=== PATIENT | male | born 1990 | race Caucasian/White ===

== ENCOUNTER 2019-02-26 18:23 | Emergency (ER) | payer BC ==
[2019-02-26] MEDS ORDERED: DIPH,PERTUS(ACELL)TETVAC-LF 0.5 ML VIAL IM ONE (18:41)
[2019-02-26] MEDS ORDERED: SODIUM CHLORIDE 0.9% 1,000 ML IV STA (18:41)
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
[2019-02-26 19:02] LABS: Basophils # (A) 0.1 k/uL (0-0.2); Basophils % (A) 0 %; Eosinophils # (A) 0.1 k/uL (0-0.7); Eosinophils % (A) 1 %; HCT 48.7 % (39.0-53.0); Lymphocytes # (A) 2.3 k/uL (1.0-4.8); Lymphocytes % (A) 20 %; MCHC 34.8 g/dL (31.0-37.0); MCV 91.9 fL (80.0-100.0); Mean Platelet Volume 7.6; Monocytes # (A) 0.4 k/uL (0-1.0); Monocytes % (A) 3 %; Neutrophils # (A) 8.4 k/uL (1.3-7.7); Neutrophils % (A) 73 %; Platelet Count 274 k/uL (150-450); RDW 13.5 % (11.5-15.5); WBC 11.5 k/uL (3.8-10.6)
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
[2019-02-26 19:06] LABS: ALT 24 U/L (21-72); AST 41 U/L (17-59); African American GFR (CKD) >90 (>60 ml/min/1.73 sqM); Alkaline Phosphatase 117 U/L (38-126); Amylase 67 U/L (30-110); Anion Gap 13 mmol/L; Blood Urea Nitrogen 9 mg/dL (9-20); Calcium 9.8 mg/dL (8.4-10.2); Carbon Dioxide 23 mmol/L (22-30); Chloride 107 mmol/L (98-107); Glucose 139 mg/dL (74-99); Non-African American GFR(CKD) >90 (>60 ml/min/1.73 sqM); Sodium 143 mmol/L (137-145); Total Bilirubin 0.3 mg/dL (0.2-1.3); Total Protein 8.1 g/dL (6.3-8.2)
[2019-02-26 19:08] LABS: Alcohol 145 mg/dL
[2019-02-26 19:10] LABS: INR 0.9 (<1.2); Partial Thromboplastin Time 23.5 sec (22.0-30.0); Prothrombin Time 9.7 sec (9.0-12.0)
[2019-02-26 19:17] LABS: Creatine Kinase 122 U/L (55-170)
[2019-02-26 19:29] LABS: Creatine Kinase MB 0.7 ng/mL (0.0-2.4); Troponin I <0.012 ng/mL (0.000-0.034)
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
[2019-02-26 21:42] LABS: Appearance,Urine Clear (Clear); Bilirubin,Urine Negative (Negative); Blood,Urine Negative (Negative); Color,Urine Yellow; Glucose,Urine (UA) Negative (Negative); Ketones,Urine Negative (Negative); Leukocyte Esterase,Urine Negative (Negative); Nitrite,Urine Negative (Negative); PH, Urine 7.5 (5.0-8.0); Protein,Urine Trace (Negative); Specific Gravity,Urine 1.037 (1.001-1.035); Urobilinogen,Urine <2.0 mg/dL (<2.0)
[2019-02-26 21:49] LABS: Amphetamine Screen,Urine Not Detected (NotDetected); Barbiturate Screen,Urine Not Detected (NotDetected); Benzodiazepines Screen,Urine Not Detected (NotDetected); Cocaine Screen,Urine Not Detected (NotDetected); Methadone Screen, Urine Not Detected (NotDetected); Opiate Screen,Urine Not Detected (NotDetected); Oxycodone Screen, Urine Not Detected (NotDetected); Phencyclidine Screen,Urine Not Detected (NotDetected); Tricyclic Antidepressant,Urine Not Detected (NotDetected); Urn Cannabinoid Scrn Not Detected (NotDetected)
[2019-02-26 23:00] VITALS: BP 123/85; PULSE 111; RESP 18; TEMP 98
== END 2019-02-26 22:00 | disposition home or self-care (01) ==
LOC: EC 18:23
DX: S81.011A Laceration without foreign body, right knee, initial encounter (principal); S00.11XA Contusion of right eyelid and periocular area, initial encounter; S30.810A Abrasion of lower back and pelvis, initial encounter; S80.212A Abrasion, left knee, initial encounter; S50.311A Abrasion of right elbow, initial encounter; D72.829 Elevated white blood cell count, unspecified; F17.200 Nicotine dependence, unspecified, uncomplicated; Z53.29 Procedure and treatment not carried out because of patient's decision for other reasons; Z79.899 Other long term (current) drug therapy; Z91.013 Allergy to seafood; Z91.018 Allergy to other foods; Z23 Encounter for immunization; V28.4XXA Motorcycle driver injured in noncollision transport accident in traffic accident, initial encounter; Y92.89 Other specified places as the place of occurrence of the external cause
CPT/HCPCS: 99284; 96360; 96361; 90471; 36415; 86900; 86901; 80053; 82150; 82550; 82553; 83605; 83690; 84484; 85025; 85610; 85730; 86850; 81003; 80306; 80320; 72170; 71045; 72125; 70486; 70450; 71260; 74177; 90715; L0120; Q9967; 93005

== ENCOUNTER 2019-07-02 02:33 | Emergency (ER) | payer BC ==
[2019-07-02 02:49] VITALS: BP 120/76; PULSE 84; RESP 20; TEMP 98
[2019-07-02] MEDS ORDERED: KETOROLAC 30 MG/ML 1 ML VIAL IM STA (03:21)
--- NOTE | 2019-07-02 03:29 | ED ---
General Adult HPI - General Chief complaint: Dental/Oral Stated complaint: dental pain Time Seen by Provider: 07/02/19 03:09 Source: patient, RN notes reviewed, old records reviewed Mode of arrival: ambulatory Limitations: no limitations - History of Present Illness Initial comments: 28-year-old male presents for evaluation of dental pain. Patient has pain in his left upper and lower molars. He states he has impacted wisdom teeth and his had dental issues for several years. He has reported fractured teeth as well as multiple anxieties lost over the past 2 years. Denies facial swelling. Denies any fever. No chronic medical conditions. He has pain both upper and lower teeth. He states he has not been able to follow up with a dentist recently but states he was told that he's given and need multiple extractions and dentures. - Related Data Home Medications Medication Instructions Recorded Confirmed Gabapentin(Unknown Dose) 1 tab PO ONCE 02/26/19 02/26/19 Previous Rx's Medication Instructions Recorded Ibuprofen [Motrin] 600 mg PO Q8HR PRN #24 tab 07/02/19 Penicillin V Potassium [Pen Vee K] 500 mg PO QID 7 Days #28 tablet 07/02/19 Allergies Allergy/AdvReac Type Severity Reaction Status Date / Time shellfish derived [Shrimp] Allergy Rash/Hives Verified 07/02/19 02:48 in mouth sweet potato Allergy Rash/Hives Verified 07/02/19 02:48 Review of Systems ROS Statement: Those systems with pertinent positive or pertinent negative responses have been documented in the HPI. ROS Other: All systems not noted in ROS Statement are negative. Past Medical History Past Medical History: No Reported History History of Any Multi-Drug Resistant Organisms: None Reported Past Surgical History: No Surgical Hx Reported Past Psychological History: No Psychological Hx Reported Smoking Status: Current every day smoker Past Alcohol Use History: Occasional Past Drug Use History: None Reported General Exam Limitations: no limitations General appearance: alert, in no apparent distress Head exam: Present: atraumatic, normocephalic Eye exam: Present: normal appearance, PERRL, EOMI ENT exam: Present: other (very poor dentition, multiple fractured teeth, missing fillings, tenderness to percussion throughout the upper and lower wisdom teeth and molars on the left side. No appreciable abscess, no facial cellulitis.) Respiratory exam: Present: normal lung sounds bilaterally. Absent: respiratory distress, wheezes Cardiovascular Exam: Present: regular rate, normal rhythm Course Vital Signs 07/02/19 02:47 Temperature 98 F Pulse Rate 84 Respiratory 20 Rate Blood Pressure 120/76 O2 Sat by Pulse 99 Oximetry Medical Decision Making - Medical Decision Making 28-year-old male with poor dentition, multiple dental caries, fractured teeth, and missing fillings throughout. Pain predominantly on the left hand upper lower molars and wisdom teeth. He will be prescribed prophylactic antibiotics as well as Motrin for pain. He will make an appointment with dentistry. He is given dental follow-up. Disposition Clinical Impression: Fracture of tooth, Dental caries, Impacted molar, Toothache Disposition: HOME SELF-CARE Condition: Good Instructions (If sedation given, give patient instructions): Toothache (ED) Additional Instructions: please follow up with your dentist. Prescriptions: Ibuprofen [Motrin] 600 mg PO Q8HR PRN #24 tab PRN Reason: Pain Penicillin V Potassium [Pen Vee K] 500 mg PO QID 7 Days #28 tablet Is patient prescribed a controlled substance at d/c from ED?: No Referrals: None,Stated [Primary Care Provider] - 1-2 days Time of Disposition: 03:26
== END 2019-07-02 03:43 | disposition home or self-care (01) ==
LOC: EC 02:33
DX: K01.1 Impacted teeth (principal); S02.5XXA Fracture of tooth (traumatic), initial encounter for closed fracture; K02.9 Dental caries, unspecified; F41.9 Anxiety disorder, unspecified; F17.200 Nicotine dependence, unspecified, uncomplicated; Z91.013 Allergy to seafood; Z91.018 Allergy to other foods; Z79.899 Other long term (current) drug therapy; X58.XXXA Exposure to other specified factors, initial encounter
CPT/HCPCS: 96372; 99283

== ENCOUNTER 2020-11-23 03:05 | Emergency (ER) | payer BC, OTHER ==
[2020-11-23 03:11] VITALS: BP 134/82; PULSE 113; RESP 18; TEMP 97.9
== END 2020-11-23 04:38 ==
LOC: EC 03:05
DX: Z02.89 Encounter for other administrative examinations (principal)
CPT/HCPCS: 99499

== ENCOUNTER 2021-12-13 15:03 | Inpatient (IN) | payer BC, MEDICAID, OTHER ==
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
[2021-12-13 17:50] LABS: Basophils # (A) 0.1 k/uL (0-0.2); Basophils % (A) 1 %; Eosinophils % (A) 0 %; HCT 50.6 % (39.0-53.0); HGB 16.3 gm/dL (13.0-17.5); Lymphocytes % (A) 8 %; MCH 31.7 pg (25.0-35.0); MCHC 32.2 g/dL (31.0-37.0); MCV 98.6 fL (80.0-100.0); Mean Platelet Volume 7.4; Monocytes # (A) 0.5 k/uL (0-1.0); Monocytes % (A) 4 %; Neutrophils # (A) 11.9 k/uL (1.3-7.7); Neutrophils % (A) 87 %; Platelet Count 280 k/uL (150-450); RBC 5.13 m/uL (4.30-5.90); RDW 12.2 % (11.5-15.5); WBC 13.7 k/uL (3.8-10.6)
[2021-12-13 18:00] LABS: ALT 32 U/L (4-49); AST 46 U/L (17-59); African American GFR (CKD) >90 (>60 ml/min/1.73 sqM); Albumin 5.3 g/dL (3.5-5.0); Alkaline Phosphatase 154 U/L (38-126); Anion Gap 16 mmol/L; Blood Urea Nitrogen 15 mg/dL (9-20); Calcium 9.6 mg/dL (8.4-10.2); Carbon Dioxide 19 mmol/L (22-30); Chloride 102 mmol/L (98-107); Glucose 98 mg/dL (74-99); Non-African American GFR(CKD) >90 (>60 ml/min/1.73 sqM); Potassium 4.5 mmol/L (3.5-5.1); Sodium 137 mmol/L (137-145); Total Bilirubin 0.7 mg/dL (0.2-1.3); Total Protein 8.4 g/dL (6.3-8.2)
[2021-12-13] MEDS ORDERED: MAGNESIUM HYDROXIDE 2,400 MG/10 ML CUP PO PRN (23:14)
[2021-12-13] MEDS ORDERED: MAG HYDROX/AL HYDROX/SIMETH 30 ML CUP PO PRN (23:14)
[2021-12-13] MEDS ORDERED: LORazepam 1 MG TAB PO PRN (23:14)
[2021-12-13] MEDS ORDERED: HALOPERIDOL LACTATE 5 MG/ML 1 ML VIAL IM PRN (23:14)
[2021-12-13] MEDS ORDERED: ACETAMINOPHEN TAB 325 MG TAB PO PRN (23:14)
[2021-12-13] MEDS ORDERED: LORazepam 2 MG/ML INJ IM PRN (23:18)
[2021-12-13] MEDS ORDERED: QUEtiapine 100 MG TAB PO PRN (23:19)
[2021-12-13] MEDS ORDERED: haloperidoL 5 MG TAB PO PRN (23:19)
[2021-12-14] MEDS: NICOTINE 14MG/24HR PATCH TRANSDERM SCH ×3 (00:31→15:18)
[2021-12-14] MEDS ORDERED: CALCIUM CARBONATE 500 MG CHEWABLE PO PRN (01:17)
--- NOTE | 2021-12-14 01:23 | P.MDCNMH ---
History of Present Illness H&P Date: 12/14/21 Chief Complaint: Anxiety 31-year-old male with history of depression and peptic ulcer disease Patient comes in for evaluation due to depressed mood and excessive anxiety juni ent feels very tense he denies any suicidal ideation but he is struggling with stuttering and feeling very anxious. A lot of things been going wrong in his life and he felt that he couldn't take it anymore started drinking again for couple days and now he is presenting to the ED requesting help and seeking to talk to somebody he is not currently on any medications he hasn't seen any doctor in many years. He also reports some epigastric abdominal pain which normally comes and goes he reports history of peptic ulcer disease he currently doesn't take any medications he denies any radiation of the pain denies any associated nausea vomiting or diarrhea denies any GI bleeding Review of Systems Pertinent positives as noted in HPI. All other systems were reviewed and are negative Past Medical History Past Medical History: No Reported History History of Any Multi-Drug Resistant Organisms: None Reported Past Surgical History: No Surgical Hx Reported Past Anesthesia/Blood Transfusion Reactions: No Reported Reaction Past Psychological History: Anxiety Smoking Status: Current every day smoker Past Alcohol Use History: Occasional Past Drug Use History: None Reported Medications and Allergies Home Medications Medication Instructions Recorded Confirmed Type No Known Home Medications 12/13/21 12/13/21 History Allergies Allergy/AdvReac Type Severity Reaction Status Date / Time shellfish derived [Shrimp] Allergy Rash/Hives Verified 12/13/21 20:29 in mouth sweet potato Allergy Rash/Hives Verified 12/13/21 20:29 Physical Exam Vitals: Vital Signs Temp Pulse Resp BP BP Pulse Ox 12/14/21 00:33 98.0 F 20 143/79 12/13/21 15:24 98.7 F 128 H 18 134/85 98 Intake and Output 12/13/21 12/13/21 12/14/21 14:59 22:59 06:59 Other: Weight 48.081 kg 48.563 kg Constitutional: vital signs stable, Not in acute distress, pleasant, conversant Lungs: Clear to auscultation bilaterally, clear to percussion, normal respiratory effort no use of accessory muscles Cardiovascular: Regular rate and rhythm, no murmurs, no gallops, no rubs, no peripheral edema Gastrointestinal: Soft, no tenderness to palpation, no palpable hepatosple nomegally, bowel sounds positive, no abdominal wall hernias Extremities: No digital cyanosis or clubbing, peripheral pulses palpable and equal over bilateral radial arteries and dorsalis pedis artery, no calf muscle tenderness Cranial Nerve Examination - Cranial Nerves Cranial Nerve II- Optic: Intact Cranial Nerve III- Oculomotor: Intact Cranial Nerve IV- Trochlear: Intact Cranial Nerve V- Trigeminal: Intact Cranial Nerve - Abducens: Intact Cranial Nerve VII- Facial: Intact Cranial Nerve VIII- Auditory: Intact Cranial Nerve IX- Glossopharyngeal: Intact Cranial Nerve X- Vagus: Intact Cranial Nerve XI- Accessory: Intact Cranial Nerve XII- Hypoglossal: Intact Results CBC & Chem 7: 12/13/21 16:45 12/13/21 16:45 Labs: Abnormal Lab Results - Last 24 Hours (Table) 12/13/21 12/13/21 Range/Units 16:45 16:45 WBC 13.7 H (3.8-10.6) k/uL Neutrophils # 11.9 H (1.3-7.7) k/uL Carbon Dioxide 19 L (22-30) mmol/L Alkaline Phosphatase 154 H (38-126) U/L Total Protein 8.4 H (6.3-8.2) g/dL Albumin 5.3 H (3.5-5.0) g/dL Assessment and Plan Assessment: Anxiety and depression Management per psych Epigastric discomfort possible gastritis Protonix 40 mg twice a day Tums when necessary Labs reviewed Thank you for allowing us to participate in the care of this patient. We will follow peripherally. Do not hesitate to contact us with questions. Someone can be reached from the [facility] hospitalist group at all hours of the day at [phone].
[2021-12-14] MEDS: PANTOPRAZOLE 40 MG TABLET PO SCH ×3 (02:09→17:47)
[2021-12-14] MEDS ORDERED: chlordiazePOXIDE 25 MG CAP PO SCH (09:00)
[2021-12-14 09:35] LABS: Chol/HDL Ratio 2.11 Ratio; LDL Cholesterol,Calculated 104.4 mg/dL (0.0-131.0)
[2021-12-14] MEDS ORDERED: PROPRANOLOL 20 MG TAB PO STA (09:59)
[2021-12-14 10:10] VITALS: BMI 18.3
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
[2021-12-14] MEDS: PROPRANOLOL 20 MG TAB PO SCH ×2 (15:18→20:58)
[2021-12-14] MEDS: chlordiazePOXIDE 25 MG CAP PO SCH ×2 (15:18→23:06)
[2021-12-14] MEDS: QUEtiapine 100 MG TAB PO SCH (20:58)
[2021-12-15] MEDS: PANTOPRAZOLE 40 MG TABLET PO SCH ×2 (08:26→16:48)
[2021-12-15] MEDS: NICOTINE 14MG/24HR PATCH TRANSDERM SCH (08:26)
[2021-12-15] MEDS: chlordiazePOXIDE 25 MG CAP PO SCH ×3 (08:27→20:42)
[2021-12-15] MEDS: PROPRANOLOL 20 MG TAB PO SCH (08:27)
--- NOTE | 2021-12-15 13:13 | P.PN ---
Progress Note - Text Progress Note Date: 12/15/21 Interval history: Patient was directable and agreeable to speak with lead technical writer. At this time, patient denies any suicidal or homicidal ideations intent or plan. Denies any auditory or visual hallucinations. Patient denies any side effects from the medications and has been compliant with meds. He reports he starts to tremor and starts to stutter when he gets anxious, and shows me his hands are tremoring. He reports he normally drinks a pint of whiskey of day, for the past year, and his last drink was on 12/13/2021, about 2 days ago. A few years ago he used to drink about a gallon of liquor a day. Mental status exam: General Appearance: Patient appears to be stated age. He is disheveled, unshaven. Behavior: No agitated behavior. Patient is cooperative. Speech: Patient's speech is fluent and nonpressured. Mood/Affect: Mood is improving mildly, affect is anxious and constricted. Suicidality/Homicidality: Patient denies having any suicidal or homicidal ideation intent or plan. Perceptions: Patient denies any auditory or visual hallucinations. Though content/process: There is no evidence of any delusional thought content and thought process is linear and goal-directed. Memory and concentration: Alert and oriented to person, place, time and situation, grossly intact for the purposes of this session Judgment and insight: improving mildly Assessment/Plan: Major depressive disorder, moderate, with anxious features Methamphetamine use disorder Tobacco use disorder Alcohol use disorder Alcohol withdrawal Patient continues to meet criteria for inpatient psychiatric admission for symptom stabilization and safety. Patient will be maintained on current psychotropic medication regimen, except will hold his Inderal since this may mask alcohol withdrawal. Continue Librium 25 mg TID for alcohol withdrawal. Continue CIWA protocol. Will consider starting an antidepressant tomorrow as his alcohol withdrawal resolves. Monitor for medication compliance and for any psychotropic medication side effects. Will continue to monitor ongoing response to treatment. Encouraged participation in milieu.
[2021-12-15] MEDS: QUEtiapine 100 MG TAB PO SCH (20:42)
[2021-12-16] MEDS: NICOTINE 14MG/24HR PATCH TRANSDERM SCH (08:43)
[2021-12-16] MEDS: chlordiazePOXIDE 25 MG CAP PO SCH ×2 (08:43→20:01)
[2021-12-16] MEDS: PANTOPRAZOLE 40 MG TABLET PO SCH ×2 (08:43→16:34)
--- NOTE | 2021-12-16 14:33 | P.PN ---
Progress Note - Text Progress Note Date: 12/16/21 Interval history: Patient was directable and agreeable to speak with radio news writer. At this time, patient denies any suicidal or homicidal ideations intent or plan. Patient denies any auditory or visual hallucinations. Patient denies any side effects from the medications and has been compliant with meds. He appears calmer and less anxious today, and has been sleeping today. He denies tremor, sweating, or shaking. He reports depressed mood, low motivation, tired, anhedonia, low energy, fair appetite. Mental status exam: General Appearance: Patient appears to be stated age. He is disheveled, unshaven. Behavior: No agitated behavior. Patient is cooperative and yawning. Speech: Patient's speech is fluent and nonpressured. Mood/Affect: Mood is "depressed", affect is depressed and constricted. Suicidality/Homicidality: Patient denies having any suicidal or homicidal ideat ion intent or plan. Perceptions: Patient denies any auditory or visual hallucinations. Though content/process: There is no evidence of any delusional thought content and thought process is linear and goal-directed. Memory and concentration: Alert and oriented to person, place, time and situation, grossly intact for the purposes of this session Judgment and insight: improving mildly Assessment/Plan: Major depressive disorder, moderate, with anxious features Methamphetamine use disorder Tobacco use disorder Alcohol use disorder Alcohol withdrawal Patient continues to meet criteria for inpatient psychiatric admission for symptom stabilization and safety. Decrease Librium 25 mg from TID to BID for alcohol withdrawal, with plan to further taper and discontinue. Continue CIWA protocol. Start Lexapro at 5 mg daily for depression and anxiety. Monitor for medication compliance and for any psychotropic medication side effects. Will continue to monitor ongoing response to treatment. Encouraged participation in milieu.
[2021-12-16] MEDS: ESCITALOPRAM 5 MG TAB PO SCH (16:26)
[2021-12-16] MEDS: QUEtiapine 100 MG TAB PO SCH (20:00)
[2021-12-17] MEDS: NICOTINE 14MG/24HR PATCH TRANSDERM SCH (08:32)
[2021-12-17] MEDS: chlordiazePOXIDE 25 MG CAP PO SCH (08:33)
[2021-12-17] MEDS: PANTOPRAZOLE 40 MG TABLET PO SCH ×2 (08:33→17:41)
[2021-12-17] MEDS: ESCITALOPRAM 5 MG TAB PO SCH (08:33)
[2021-12-17] MEDS ORDERED: ESCITALOPRAM 5 MG TAB PO STA (10:55)
--- NOTE | 2021-12-17 11:01 | P.PN ---
Progress Note - Text Progress Note Date: 12/17/21 Interval history: Patient was found walking the hallway and talking to a peer; he was directable and agreeable to speak with medical underwriter. He reports good sleep, and appetite is fair, reports he is still feeling somewhat depressed and appears anxious over discharge. He denies alcohol withdrawal symptoms such as tremor, sweating, or shaking.. Vitals are stable today. At this time, patient denies any suicidal or homicidal ideations, intent, or plan. Patient denies any auditory or visual hallucinations. Patient denies any side effects from the medications and has been compliant with meds. He reports depressed mood, low motivation, tired, anhedonia, low energy, fair appetite. He received Librium 25 mg this morning as scheduled. Mental status exam: General Appearance: Patient appears to be stated age. He is disheveled, unshaven. Behavior: No agitated behavior. Patient is cooperative but somewhat anxious. Speech: Patient's speech is fluent and nonpressured. Mood/Affect: Mood is anxious and "a little bit depressed", affect is congruent. Suicidality/Homicidality: Patient denies having any suicidal or homicidal ideation, intent, or plan. Perceptions: Patient denies any auditory or visual hallucinations. Though content/process: There is no evidence of any delusional thought content and thought process is ruminative. Memory and concentration: Alert and oriented to person, place, time and situation, grossly intact for the purposes of this session Judgment and insight: improving mildly Assessment/Plan: Major depressive disorder, moderate, with anxious features Methamphetamine use disorder Tobacco use disorder Alcohol use disorder Alcohol withdrawal, resolved Patient continues to meet criteria for inpatient psychiatric admission for symptom stabilization and safety. Discontinue Librium taper today since alcohol withdrawal appears to have subsided. Increase Lexapro to 10 mg daily for depression and anxiety. Restart Propranolol 20 mg TID for anxiety. Will need outpatient counseling and outpatient substance abuse treatment. Monitor for medication compliance and for any psychotropic medication side effects. Will continue to monitor ongoing response to treatment. Encouraged participation in milieu.
[2021-12-17] MEDS: PROPRANOLOL 20 MG TAB PO SCH ×2 (16:04→20:02)
[2021-12-17] MEDS: QUEtiapine 100 MG TAB PO SCH (20:02)
[2021-12-17 20:05] VITALS: RESP 18
[2021-12-18 07:15] VITALS: BP 110/65; PULSE 78; TEMP 98.6
[2021-12-18] MEDS: NICOTINE 14MG/24HR PATCH TRANSDERM SCH (07:55)
[2021-12-18] MEDS: PANTOPRAZOLE 40 MG TABLET PO SCH (07:56)
[2021-12-18] MEDS: PROPRANOLOL 20 MG TAB PO SCH (07:56)
[2021-12-18] MEDS ORDERED: ESCITALOPRAM 10 MG TAB PO SCH (09:00)
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
== END 2021-12-18 12:14 | disposition home or self-care (01) | DRG 885 ==
LOC: EC 15:03 → 3MHU 23:04
PROVIDERS: ADMIT Psychiatry & Neurology Psychiatry; ATTEND Psychiatry & Neurology Psychiatry
DX: F33.1 Major depressive disorder, recurrent, moderate (principal); F10.239 Alcohol dependence with withdrawal, unspecified; F15.90 Other stimulant use, unspecified, uncomplicated; F17.210 Nicotine dependence, cigarettes, uncomplicated; F41.9 Anxiety disorder, unspecified; G47.00 Insomnia, unspecified; Z79.899 Other long term (current) drug therapy; Z91.51 Personal history of suicidal behavior; Z20.822 Contact with and (suspected) exposure to COVID-19
CPT/HCPCS: 36415; 80053; 80061; 82075; 83036; 84443; 85025; 87635; 99285

== ENCOUNTER 2024-06-25 07:17 | Inpatient (IN) | payer OTHER ==
[2024-06-25] MEDS ORDERED: LORazepam 2 MG/ML INJ IV PRN ×2 (07:43)
[2024-06-25] MEDS ORDERED: LORazepam 1 MG TAB PO PRN ×3 (07:43)
[2024-06-25] MEDS ORDERED: LORazepam 0.5 MG TAB PO PRN (07:43)
--- NOTE | 2024-06-25 07:54 | ED ---
General Adult HPI - General Chief complaint: Alcohol Stated complaint: Vomiting Time Seen by Provider: 06/25/24 07:34 Source: patient, RN notes reviewed Mode of arrival: ambulatory Limitations: no limitations - History of Present Illness Initial comments: 33-year-old male with history of alcoholism presents to the emergency department for evaluation of alcohol withdrawal. Patient reports that he typically drinks a fifth of whiskey daily. He states that he has been trying to cut back for the past month or so. He reports over the past week decrease in his alcohol consumption. He states that his last drink was around 1600 yesterday. He notes that he did not drink his typical amount yesterday. He states that he only had 2-3 shots yesterday. He admits to nausea, vomiting, diaphoresis, tremors. He denies any history of withdrawal seizures or delirium tremens. - Related Data Home Medications Medication Instructions Recorded Confirmed Prazosin [Minipress] 1 mg PO HS 06/25/24 06/25/24 Sertraline [Zoloft] 150 mg PO DAILY 06/25/24 06/25/24 hydrOXYzine HCL [Atarax] 25 - 50 mg PO HS PRN 06/25/24 06/25/24 hydrOXYzine HCL [Atarax] 50 mg PO BID PRN 06/25/24 06/25/24 Allergies Allergy/AdvReac Type Severity Reaction Status Date / Time shellfish derived [Shrimp] Allergy Rash/Hives Verified 06/25/24 10:18 in mouth, SWELLING sweet potato Allergy Rash/Hives Verified 06/25/24 10:18 Review of Systems ROS Statement: Those systems with pertinent positive or pertinent negative responses have been documented in the HPI. ROS Other: All systems not noted in ROS Statement are negative. Past Medical History Past Medical History: No Reported History History of Any Multi-Drug Resistant Organisms: None Reported Past Surgical History: No Surgical Hx Reported Past Anesthesia/Blood Transfusion Reactions: No Reported Reaction Past Psychological History: Anxiety Smoking Status: Current every day smoker, Vaper Past Alcohol Use History: Abuse, Daily, Heavy Past Drug Use History: None Reported, Methamphetamine General Exam Limitations: no limitations General appearance: alert, in distress Head exam: Present: other Eye exam: Present: PERRL, EOMI, other (Bilateral periorbital ecchymosis). Absent: scleral icterus, conjunctival injection, periorbital swelling ENT exam: Present: normal exam, mucous membranes moist Neck exam: Present: normal inspection. Absent: tenderness, meningismus, lymphadenopathy Respiratory exam: Present: normal lung sounds bilaterally. Absent: respiratory distress, wheezes, rales, rhonchi, stridor Cardiovascular Exam: Present: normal rhythm, tachycardia, normal heart sounds. Absent: systolic murmur, diastolic murmur, rubs, gallop, clicks GI/Abdominal exam: Present: soft. Absent: distended, tenderness, guarding, rebound, rigid Extremities exam: Present: normal inspection, full ROM, normal capillary refill. Absent: tenderness, pedal edema, joint swelling, calf tenderness Back exam: Present: normal inspection Neurological exam: Present: alert, oriented X3 Skin exam: Present: warm, dry, intact, normal color, diaphoretic. Absent: rash Course Vital Signs 06/25/24 06/25/24 07:27 11:32 Temperature 98.1 F Pulse Rate 115 H 92 Respiratory 22 22 Rate Blood Pressure 141/99 143/81 O2 Sat by Pulse 98 96 Oximetry Medical Decision Making - Medical Decision Making Was pt. sent in by a medical professional or institution (Dr. PA, PATTERN REPAIR PERSON, urgent care, hospital, or jail...) When possible be specific @ -No Did you speak to anyone other than the patient for history (EMS, parent, family, police, friend...)? What history was obtained from this source @ -No Did you review nursing and triage notes (agree or disagree)? Why? @ -I reviewed and agree with nursing and triage notes Were old charts reviewed (outside hosp., previous admission, EMS record, old EKG, old radiological studies, urgent care reports/EKG's, jail records)? Report findings @ -No old charts were reviewed Differential Diagnosis (chest pain, altered mental status, abdominal pain women, abdominal pain men, vaginal bleeding, weakness, fever, dyspnea, syncope, headache, dizziness, GI bleed, back pain, seizure, CVA, palpatations, mental health, musculoskeletal)? @ -Not applicable EKG interpreted by me (3pts min.). @ -P@838 shows sinus rhythm rate 75, TX 136, QRS 93, QTQTc 3 [id number] X-rays interpreted by me (1pt min.). @ -None done CT interpreted by me (1pt min.). @ -None done U/S interpreted by me (1pt. min.). @ -None done What testing was considered but not performed or refused? (CT, X-rays, U/S, labs)? Why? @ -None What meds were considered but not given or refused? Why? @ -None Did you discuss the management of the patient with other professionals (professionals i.e. DrTeresa, PA, PATTERN REPAIR PERSON, lab, RT, psych nurse, social research assistant, skein washer, teacher, service officer, outsole caser)? Give summary @ -Management discussed with Dr. Ayers who is accepting of the admission Was smoking cessation discussed for >3mins.? @ -No Was critical care preformed (if so, how long)? @ -No Were there social determinants of health that impacted care today? How? (Homelessness, low income, unemployed, alcoholism, drug addiction, transportation, low edu. Level, literacy, decrease access to med. care, nursing home, rehab)? @ -Alcoholism Was there de-escalation of care discussed even if they declined (Discuss DNR or withdrawal of care, Hospice)? DNR status @ -No What co-morbidities impacted this encounter? (DM, HTN, Smoking, COPD, CAD, Cancer, CVA, ARF, Chemo, Hep., AIDS, mental health diagnosis, sleep apnea, morbid obesity)? @ -Alcoholism Was patient admitted / discharged? Hospital course, mention meds given and route, prescriptions, significant lab abnormalities, going to OR and other pertinent info. @ -Admitted. Patient presented to emergency department for evaluation of alcohol withdrawal symptoms. Patient reports his last drink at 4 PM yesterday. He reports drinking 1/5 of whiskey daily. Upon initial evaluation, patient is tachycardic, diaphoretic, tremulous.CIWA protocol was initiated. Patient was provided IV Ativan and Zofran. Laboratory studies revealed no significant leukocytosis, elevation in AST, ALT, alk phos likely due to frequent alcohol consumption. Patient will be admitted for observation for alcohol withdrawal. Case ddiscussed with Dr. Ayers who is accepting of the admission. Case discussed with Dr. Ortez Undiagnosed new problem with uncertain prognosis? @ -No Drug Therapy requiring intensive monitoring for toxicity (Heparin, Nitro, Insulin, Cardizem)? @ -No Were any procedures done? @ -No Diagnosis/symptom? @ -Alcohol withdrawal Acute, or Chronic, or Acute on Chronic? @ -Acute Uncomplicated (without systemic symptoms) or Complicated (systemic symptoms)? @ -Default Side effects of treatment? @ -No Exacerbation, Progression, or Severe Exacerbation? @ -No Poses a threat to life or bodily function? How? (Chest pain, USA, VT, pneumonia, PE, COPD, DKA, ARF, appy, cholecystitis, CVA, Diverticulitis, Homicidal, Suicidal, threat to staff... and all critical care pts) @ -Moderate - Lab Data Result diagrams: 06/25/24 07:59 06/25/24 07:59 Lab Results 06/25/24 06/25/24 06/25/24 Range/Units 07:59 07:59 07:59 WBC 5.0 (3.8-10.6) k/uL RBC 4.71 (4.30-5.90) m/uL Hgb 15.3 (13.0-17.5) gm/dL Hct 44.9 (39.0-53.0) % MCV 95.3 (80.0-100.0) fL MCH 32.4 (25.0-35.0) pg MCHC 34.0 (31.0-37.0) g/dL RDW 12.3 (11.5-15.5) % Plt Count 261 (150-450) k/uL MPV 7.1 Neutrophils % 70 % Lymphocytes % 18 % Monocytes % 7 % Eosinophils % 1 % Basophils % 1 % Neutrophils # 3.5 (1.3-7.7) k/uL Lymphocytes # 0.9 L (1.0-4.8) k/uL Monocytes # 0.4 (0-1.0) k/uL Eosinophils # 0.0 (0-0.7) k/uL Basophils # 0.0 (0-0.2) k/uL PT 10.1 (10.0-12.5) sec INR 0.9 (<1.2) APTT 21.2 L (22.0-30.0) sec Sodium 135 L (137-145) mmol/L Potassium 4.2 (3.5-5.1) mmol/L Chloride 98 (98-107) mmol/L Carbon Dioxide 21 L (22-30) mmol/L Anion Gap 16 mmol/L BUN 12 (9-20) mg/dL Creatinine 0.75 (0.66-1.25) mg/dL Est GFR (CKD-EPI)AfAm >90 (>60 ml/min/1.73 sqM) Est GFR (CKD-EPI)NonAf >90 (>60 ml/min/1.73 sqM) Glucose 131 H (74-99) mg/dL Calcium 10.5 H (8.4-10.2) mg/dL Total Bilirubin 1.2 (0.2-1.3) mg/dL AST 177 H (17-59) U/L ALT 183 H (4-49) U/L Alkaline Phosphatase 190 H (38-126) U/L Total Protein 8.6 H (6.3-8.2) g/dL Albumin 5.6 H (3.5-5.0) g/dL Serum Alcohol <10 mg/dL Disposition Clinical Impression: Alcohol withdrawal Disposition: ADMITTED IP TO THIS [facility] Condition: Stable Is patient prescribed a controlled substance at d/c from ED?: No
[2024-06-25] MEDS: LORazepam 2 MG/ML INJ IV PRN (08:08)
[2024-06-25] MEDS: ONDANSETRON 4 MG/2 ML VIAL IVP STA (08:09)
[2024-06-25] MEDS: SODIUM CHLORIDE 0.9% 1,000 ML IV ONE (08:09)
[2024-06-25 08:12] LABS: Basophils % (A) 1 %; Eosinophils % (A) 1 %; HCT 44.9 % (39.0-53.0); HGB 15.3 gm/dL (13.0-17.5); Lymphocytes # (A) 0.9 k/uL (1.0-4.8); Lymphocytes % (A) 18 %; MCH 32.4 pg (25.0-35.0); MCV 95.3 fL (80.0-100.0); Mean Platelet Volume 7.1; Monocytes # (A) 0.4 k/uL (0-1.0); Monocytes % (A) 7 %; Neutrophils # (A) 3.5 k/uL (1.3-7.7); Neutrophils % (A) 70 %; Platelet Count 261 k/uL (150-450); RBC 4.71 m/uL (4.30-5.90); RDW 12.3 % (11.5-15.5)
[2024-06-25 08:21] LABS: ALT 183 U/L (4-49); AST 177 U/L (17-59); African American GFR (CKD) >90 (>60 ml/min/1.73 sqM); Albumin 5.6 g/dL (3.5-5.0); Alcohol <10 mg/dL; Alkaline Phosphatase 190 U/L (38-126); Anion Gap 16 mmol/L; Blood Urea Nitrogen 12 mg/dL (9-20); Calcium 10.5 mg/dL (8.4-10.2); Carbon Dioxide 21 mmol/L (22-30); Chloride 98 mmol/L (98-107); Glucose 131 mg/dL (74-99); Non-African American GFR(CKD) >90 (>60 ml/min/1.73 sqM); Potassium 4.2 mmol/L (3.5-5.1); Sodium 135 mmol/L (137-145); Total Bilirubin 1.2 mg/dL (0.2-1.3); Total Protein 8.6 g/dL (6.3-8.2)
[2024-06-25 08:44] LABS: INR 0.9 (<1.2); Prothrombin Time 10.1 sec (10.0-12.5)
[2024-06-25 08:45] LABS: Partial Thromboplastin Time 21.2 sec (22.0-30.0)
[2024-06-25] MEDS: LORazepam 2 MG/ML INJ IV STA (09:26)
[2024-06-25] MEDS ORDERED: ONDANSETRON 4 MG/2 ML VIAL IVP PRN (10:01)
[2024-06-25] MEDS ORDERED: NALOXONE 0.4 MG/ML 1 ML VIAL IV PRN (10:01)
[2024-06-25] MEDS: SODIUM CHLORIDE 0.9% 1,000 ML IV SCH (12:13)
[2024-06-26] MEDS ORDERED: oxyCODONE-APAP 5-325MG 1 EACH TAB PO PRN (08:11)
[2024-06-26] MEDS ORDERED: hydrOXYzine HCL 25 MG TAB PO PRN (08:18)
[2024-06-26] MEDS: SERTRALINE 50 MG TAB PO SCH (08:50)
[2024-06-26] MEDS: FOLIC ACID 1 MG TAB PO SCH (08:50)
[2024-06-26 09:10] LABS: Basophils % (A) 1 %; Eosinophils # (A) 0.1 k/uL (0-0.7); Eosinophils % (A) 1 %; HCT 42.2 % (39.0-53.0); HGB 13.8 gm/dL (13.0-17.5); Lymphocytes % (A) 22 %; MCH 32.2 pg (25.0-35.0); MCHC 32.8 g/dL (31.0-37.0); Mean Platelet Volume 7.8; Monocytes # (A) 0.3 k/uL (0-1.0); Monocytes % (A) 8 %; Neutrophils % (A) 66 %; Platelet Count 167 k/uL (150-450); RDW 12.1 % (11.5-15.5); WBC 4.5 k/uL (3.8-10.6)
[2024-06-26 09:29] LABS: ALT 183 U/L (4-49); AST 208 U/L (17-59)
--- NOTE | 2024-06-26 13:18 | P.HPIM ---
History of Present Illness H&P Date: 06/26/24 Chief Complaint: alcohol withdrawal History of present illness * 33-year-old gentleman with past medical history significant for depressed mood, anxiety, peptic ulcer disease presents for evaluation for alcohol withdrawal * patient states he drinks about 1/5 of alcohol, last drink was on 06/24 4 PM * on evaluation patient was noted to be diaphoretic, nausea, vomiting, tremors * blood work on admission showed sodium 135 potassium 4.2 BUN 12 creatinine 0.75 AST 177, ALT 183 serum alcohol level less than 10 * EKG obtained on admission showed QTc of 420, normal sinus rhythm REVIEW OF SYSTEMS: CONSTITUTIONAL: nausea, vomiting, tremors diaphoresis HEENT: No recent visual problems or hearing problems. Denied any sore throat. CARDIOVASCULAR: No chest pain, orthopnea, PND, no palpitations, no syncope. PULMONARY: No shortness of breath, no cough, no hemoptysis. GASTROINTESTINAL: nausea, vomiting, tremors diaphoresis NEUROLOGICAL: No headaches, no weakness, no numbness. HEMATOLOGICAL: Denies any bleeding or petechiae. GENITOURINARY: Denies any burning micturition, frequency, or urgency. MUSCULOSKELETAL/RHEUMATOLOGICAL: Denies any joint pain, swelling, or any muscle pain. ENDOCRINE: Denies any polyuria or polydipsia. PHYSICAL EXAMINATION: GENERAL: The patient is alert and oriented x3, not in any acute distress. Well developed, well nourished. HEENT: Pupils are round and equally reacting to light. EOMI. No scleral icterus. No conjunctival pallor. Normocephalic, atraumatic. No pharyngeal erythema. No thyromegaly. CARDIOVASCULAR: S1 and S2 present. No murmurs, rubs, or gallops. PULMONARY: Chest is clear to auscultation, no wheezing or crackles. ABDOMEN: Soft, nontender, nondistended, normoactive bowel sounds. No palpable organomegaly. MUSCULOSKELETAL: No joint swelling or deformity. EXTREMITIES: No cyanosis, clubbing, or pedal edema. NEUROLOGICAL: Gross neurological examination did not reveal any focal deficits. SKIN: No rashes. assessment and plan #1 alcohol withdrawal syndrome #2 transaminitis #3 history of depression continue patient on symptom triggered CIWA for management of alcohol withdrawal, continue Ativan as needed, hydroxyzine for transaminitis follow-up on liver profile avoid hepatotoxic medication for history of depression continue patient on Zoloft CODE STATUS is full code Past Medical History Past Medical History: No Reported History History of Any Multi-Drug Resistant Organisms: None Reported Past Surgical History: No Surgical Hx Reported Past Anesthesia/Blood Transfusion Reactions: No Reported Reaction Past Psychological History: Anxiety Smoking Status: Current every day smoker, Vaper Past Alcohol Use History: Abuse, Daily, Heavy Past Drug Use History: None Reported, Methamphetamine Medications and Allergies Home Medications Medication Instructions Recorded Confirmed Type Prazosin [Minipress] 1 mg PO HS 06/25/24 06/25/24 History Sertraline [Zoloft] 150 mg PO DAILY 06/25/24 06/25/24 History hydrOXYzine HCL [Atarax] 25 - 50 mg PO HS PRN 06/25/24 06/25/24 History hydrOXYzine HCL [Atarax] 50 mg PO BID PRN 06/25/24 06/25/24 History Allergies Allergy/AdvReac Type Severity Reaction Status Date / Time shellfish derived [Shrimp] Allergy Rash/Hives Verified 06/25/24 10:18 in mouth, SWELLING sweet potato Allergy Rash/Hives Verified 06/25/24 10:18 Physical Exam Vitals: Vital Signs Temp Pulse Pulse Resp BP BP Pulse Ox 06/26/24 02:00 98.2 F 82 16 133/86 98 06/25/24 20:00 97.9 F 88 16 133/92 97 06/25/24 16:34 98.4 F 89 18 144/88 98 06/25/24 11:32 92 22 143/81 96 Intake and Output 06/25/24 06/26/24 06/26/24 22:59 06:59 14:59 Intake Total 240 590 Balance 240 590 Intake: Oral 240 590 Other: Voiding Method Toilet # Voids 1 2 Weight 54.431 kg Results CBC & Chem 7: 06/26/24 08:51 06/25/24 07:59 Labs: Abnormal Lab Results - Last 24 Hours (Table) 06/25/24 06/25/24 06/25/24 Range/Units 07:59 07:59 07:59 Lymphocytes # 0.9 L (1.0-4.8) k/uL APTT 21.2 L (22.0-30.0) sec Sodium 135 L (137-145) mmol/L Carbon Dioxide 21 L (22-30) mmol/L Glucose 131 H (74-99) mg/dL Calcium 10.5 H (8.4-10.2) mg/dL AST 177 H (17-59) U/L ALT 183 H (4-49) U/L Alkaline Phosphatase 190 H (38-126) U/L Total Protein 8.6 H (6.3-8.2) g/dL Albumin 5.6 H (3.5-5.0) g/dL Thrombosis Risk Factor Assmnt - Choose All That Apply Any of the Below Risk Factors Present?: No Other Risk Factors: No Thrombosis Risk Factor Assessment Level: Very Low Risk
[2024-06-26] MEDS: PRAZOSIN 1 MG CAP PO SCH (20:04)
[2024-06-26] MEDS: ACETAMINOPHEN TAB 325 MG TAB PO PRN (20:04)
[2024-06-27] MEDS: THIAMINE 100 MG TAB PO SCH (09:17)
[2024-06-27 09:53] LABS: HCT 41.5 % (39.6-50.0); HGB 13.9 g/dL (13.0-17.0); MCH 31.3 pg (27.0-32.0); MCHC 33.5 g/dL (32.0-37.0); MCV 93.5 FL (80.0-97.0); Mean Platelet Volume 10.2 FL (9.5-12.2); NRBC Per 100 WBC 0 X 10*3/uL (0.00-0.01); Platelet Count 163 X 10*3/uL (140-440); RBC 4.44 X 10*6/uL (4.40-5.60); RDW 11.7 % (11.5-14.5); WBC 3.88 X 10*3/uL (4.50-10.00)
[2024-06-27 10:03] LABS: ALT 173 U/L (10-49); AST 152 U/L (14-35); Albumin 4.5 g/dL (3.8-4.9); Albumin/Globulin Ratio 2.14 Ratio (1.60-3.17); Alkaline Phosphatase 149 U/L (41-126); BUN/Creat Ratio 11.44 Ratio (12.00-20.00); Blood Urea Nitrogen 10.3 mg/dL (9.0-27.0); Calcium 9.2 mg/dL (8.7-10.3); Chloride 101 mmol/L (96-109); Globulin 2.1 g/dL (1.6-3.3); Glucose 97 mg/dL (70-110); Potassium 4.3 mmol/L (3.5-5.5); Sodium 137 mmol/L (135-145); Total Bilirubin 0.7 mg/dL (0.3-1.2); Total Protein 6.6 g/dL (6.2-8.2)
--- NOTE | 2024-06-27 11:52 | P.PN ---
Subjective Progress Note Date: 06/27/24 * 33-year-old gentleman with past medical history significant for depressed mood, anxiety, peptic ulcer disease presents for evaluation for alcohol withdrawal * patient states he drinks about 1/5 of alcohol, last drink was on 06/24 4 PM * on evaluation patient was noted to be diaphoretic, nausea, vomiting, tremors * blood work on admission showed sodium 135 potassium 4.2 BUN 12 creatinine 0.75 AST 177, ALT 183 serum alcohol level less than 10 * EKG obtained on admission showed QTc of 420, normal sinus rhythm * 06/27- patient seen and evaluated at bedside remains on room air noted to have tachycardia temperature of 100.2 with overnight, white blood cell count and low lymphocyte count will check for COVID and influenza. Liver profile trending down AST 152 ALT 173. Continue to monitor for withdrawal, patient still feels he is withdrawing REVIEW OF SYSTEMS: CONSTITUTIONAL: on admissionnausea, vomiting, tremors diaphoresis improved HEENT: No recent visual problems or hearing problems. Denied any sore throat. CARDIOVASCULAR: No chest pain, orthopnea, PND, no palpitations, no syncope. PULMONARY: No shortness of breath, no cough, no hemoptysis. GASTROINTESTINAL: on admission nausea, vomiting, tremors diaphoresis improved NEUROLOGICAL: No headaches, no weakness, no numbness. HEMATOLOGICAL: Denies any bleeding or petechiae. GENITOURINARY: Denies any burning micturition, frequency, or urgency. MUSCULOSKELETAL/RHEUMATOLOGICAL: Denies any joint pain, swelling, or any muscle pain. ENDOCRINE: Denies any polyuria or polydipsia. PHYSICAL EXAMINATION: GENERAL: The patient is alert and oriented x3, ill appearance HEENT: Pupils are round and equally reacting to light. EOMI. CARDIOVASCULAR: S1 and S2 present. No murmurs, rubs, or gallops. PULMONARY: Chest is clear to auscultation, no wheezing or crackles. ABDOMEN: Soft, nontender, nondistended, normoactive bowel sounds. No palpable organomegaly. MUSCULOSKELETAL: No joint swelling or deformity. EXTREMITIES: No cyanosis, clubbing, or pedal edema. NEUROLOGICAL: Gross neurological examination did not reveal any focal deficits. SKIN: No rashes. assessment and plan #1 alcohol withdrawal syndrome #2 transaminitis #3 history of depression continue patient on symptom triggered CIWA for management of alcohol withdrawal, continue Ativan as needed, hydroxyzine for transaminitis follow-up on liver profile avoid hepatotoxic medication for history of depression continue patient on Zoloft, continue with fluid resuscitation, minimal oral intake still dehydrated CODE STATUS is full code Objective - Vital Signs Vital signs: Vital Signs Temp 97.4 F L 06/27/24 07:39 Pulse 88 06/27/24 07:39 Resp 15 06/27/24 07:39 BP 125/87 06/27/24 07:39 Pulse Ox 97 06/27/24 07:39 FiO2 Intake & Output 06/26/24 06/27/24 06/27/24 18:59 06:59 18:59 Intake Total 540 1690 Balance 540 1690 Intake: Intake, IV Titration 1100 Amount Sodium Chloride 0.9% 1, 1100 000 ml @ 100 mls/hr IV . Q10H SANDRA Rx#:[id number] Oral 540 590 Other: # Voids 2 - Labs CBC & Chem 7: 06/27/24 03:44 06/27/24 03:44 Labs: Abnormal Lab Results - Last 24 Hours (Table) 06/27/24 06/27/24 Range/Units 03:44 03:44 WBC 3.88 L (4.50-10.00) X 10*3/uL BUN/Creatinine Ratio 11.44 L (12.00-20.00) Ratio AST 152 H (14-35) U/L ALT 173 H (10-49) U/L Alkaline Phosphatase 149 H (41-126) U/L
[2024-06-28 02:50] VITALS: RESP 16
[2024-06-28 07:52] VITALS: PULSE 78
[2024-06-28 08:44] LABS: HCT 41.6 % (39.6-50.0); HGB 13.9 g/dL (13.0-17.0); MCH 31.2 pg (27.0-32.0); MCHC 33.4 g/dL (32.0-37.0); MCV 93.3 FL (80.0-97.0); Mean Platelet Volume 10.6 FL (9.5-12.2); NRBC Per 100 WBC 0 X 10*3/uL (0.00-0.01); Platelet Count 169 X 10*3/uL (140-440); RBC 4.46 X 10*6/uL (4.40-5.60); RDW 11.8 % (11.5-14.5); WBC 4.28 X 10*3/uL (4.50-10.00)
[2024-06-28 08:49] LABS: BUN/Creat Ratio 8.38 Ratio (12.00-20.00); Blood Urea Nitrogen 6.7 mg/dL (9.0-27.0); Glucose 99 mg/dL (70-110)
[2024-06-28 08:50] LABS: ALT 195 U/L (10-49); AST 146 U/L (14-35); Albumin 4.5 g/dL (3.8-4.9); Albumin/Globulin Ratio 1.96 Ratio (1.60-3.17); Alkaline Phosphatase 157 U/L (41-126); Calcium 9.3 mg/dL (8.7-10.3); Carbon Dioxide 23.9 mmol/L (21.6-31.8); Chloride 103 mmol/L (96-109); Globulin 2.3 g/dL (1.6-3.3); Potassium 3.9 mmol/L (3.5-5.5); Sodium 140 mmol/L (135-145); Total Bilirubin 0.6 mg/dL (0.3-1.2); Total Protein 6.8 g/dL (6.2-8.2)
[2024-06-28 12:36] VITALS: BP 121/80; TEMP 97.9
== END 2024-06-28 15:05 | disposition home or self-care (01) | DRG 775 ==
LOC: EC 07:17 → 5NMEDONC 08:26 → OBSVTOIN 06-27 11:52
PROVIDERS: ADMIT Internal Medicine; ATTEND Internal Medicine
DX: F10.239 Alcohol dependence with withdrawal, unspecified (principal); F41.9 Anxiety disorder, unspecified; F32.A Depression, unspecified; E86.0 Dehydration; F17.290 Nicotine dependence, other tobacco product, uncomplicated; R74.01 Elevation of levels of liver transaminase levels; Y90.0 Blood alcohol level of less than 20 mg/100 ml; Z87.11 Personal history of peptic ulcer disease; Z79.899 Other long term (current) drug therapy
CPT/HCPCS: 36415; 80053; 80320; 84450; 84460; 85025; 85027; 85610; 85730; 87502; 87635; 93005; 96361; 96374; 96375; 96376; 99285

== ENCOUNTER 2024-11-28 11:52 | Emergency (ER) | payer OTHER ==
[2024-11-28 12:04] VITALS: TEMP 98
[2024-11-28 12:57] LABS: Basophils # (A) 0.05 10*3/uL (0.00-0.10); Basophils % (A) 0.6 %; HCT 39.8 % (39.6-50.0); HGB 14.1 g/dL (13.0-17.0); Lymphocytes # (A) 0.51 10*3/uL (0.90-5.00); MCH 32.8 pg (27.0-32.0); MCHC 35.4 g/dL (32.0-37.0); MCV 92.6 fL (80.0-97.0); Mean Platelet Volume 9.6 fL (9.5-12.2); Monocytes # (A) 0.37 10*3/uL (0.20-1.00); Monocytes % (A) 4.3 %; Neutrophils # (A) 7.55 10*3/uL (1.80-7.70); Neutrophils % (A) 88.7 %; Platelet Count 210 10*3/uL (140-440); RDW 12.1 % (11.5-14.5); WBC 8.51 10*3/uL (4.50-10.00)
[2024-11-28 13:10] LABS: ALT 147 U/L (4-49); AST 129 U/L (17-59); African American GFR (CKD) >90 (>60 ml/min/1.73 sqM); Albumin 5.1 g/dL (3.5-5.0); Alcohol <10 mg/dL; Alkaline Phosphatase 161 U/L (38-126); Anion Gap 21 mmol/L; Blood Urea Nitrogen 11 mg/dL (9-20); Calcium 9.9 mg/dL (8.4-10.2); Carbon Dioxide 18 mmol/L (22-30); Chloride 97 mmol/L (98-107); Glucose 184 mg/dL (74-99); Lipase 108 U/L (23-300); Magnesium 1.4 mg/dL (1.6-2.3); Non-African American GFR(CKD) >90 (>60 ml/min/1.73 sqM); Potassium 4.6 mmol/L (3.5-5.1); Sodium 136 mmol/L (137-145); Total Bilirubin 1.1 mg/dL (0.2-1.3); Total Protein 7.8 g/dL (6.3-8.2)
[2024-11-28] MEDS: SODIUM CHLORIDE 0.9% 1,000 ML IV STA (13:18)
[2024-11-28 13:53] LABS: Amphetamine Screen,Urine Not Detected (NotDetected); Barbiturate Screen,Urine Not Detected (NotDetected); Benzodiazepines Screen,Urine Not Detected (NotDetected); Cocaine Screen,Urine Not Detected (NotDetected); Methadone Screen, Urine Not Detected (NotDetected); Opiate Screen,Urine Not Detected (NotDetected); Oxycodone Screen, Urine Not Detected (NotDetected); Phencyclidine Screen,Urine Not Detected (NotDetected); Tricyclic Antidepressant,Urine Not Detected (NotDetected); Urn Cannabinoid Scrn Not Detected (NotDetected)
--- NOTE | 2024-11-28 14:16 | ED ---
Alcohol HPI - General Chief Complaint: Alcohol Stated Complaint: Detox Time Seen by Provider: 11/28/24 11:54 Source: patient, RN notes reviewed Mode of arrival: wheelchair Limitations: no limitations - History of Present Illness Initial Comments: 34-year-old male presents emergency department chief complaint of alcohol withdrawal. Patient states that he was recently at rehab states he started approximately 6 days ago. Last drink was yesterday. He was only nausea. Denies any hallucinations denies any therapists. Patient denies any complaint of abdominal pain pain no shortness of breath no other associated symptoms. Patient denies being suicidal homicidal. - Related Data Home Medications Medication Instructions Recorded Confirmed Prazosin [Minipress] 1 mg PO HS 06/25/24 06/25/24 Sertraline [Zoloft] 150 mg PO DAILY 06/25/24 06/25/24 hydrOXYzine HCL [Atarax] 25 - 50 mg PO HS PRN 06/25/24 06/25/24 hydrOXYzine HCL [Atarax] 50 mg PO BID PRN 06/25/24 06/25/24 Previous Rx's Medication Instructions Recorded Acetaminophen Tab [Tylenol] 650 mg PO Q6HR PRN tab 06/28/24 Folic Acid 1 mg PO DAILY #30 tab 06/28/24 Thiamine [Vitamin B-1] 100 mg PO DAILY #30 tab 06/28/24 chlordiazePOXIDE HCl [Librium] 25 mg PO QID #20 capsule 11/28/24 Allergies Allergy/AdvReac Type Severity Reaction Status Date / Time shellfish derived [Shrimp] Allergy Rash/Hives Verified 11/28/24 12:04 in mouth, SWELLING sweet potato Allergy Rash/Hives Verified 11/28/24 12:04 Review of Systems ROS Statement: Those systems with pertinent positive or pertinent negative responses have been documented in the HPI. ROS Other: All systems not noted in ROS Statement are negative. Past Medical History Past Medical History: Hypertension History of Any Multi-Drug Resistant Organisms: None Reported Past Surgical History: No Surgical Hx Reported Past Anesthesia/Blood Transfusion Reactions: No Reported Reaction Past Psychological History: Anxiety Smoking Status: Current every day smoker, Vaper Past Alcohol Use History: Abuse, Daily, Heavy Past Drug Use History: None Reported, Methamphetamine General Exam Limitations: no limitations General appearance: alert, in no apparent distress Head exam: Present: atraumatic, normocephalic, normal inspection Eye exam: Present: normal appearance, PERRL, EOMI. Absent: scleral icterus, conjunctival injection, periorbital swelling ENT exam: Present: normal exam, normal oropharynx, mucous membranes moist Neck exam: Present: normal inspection, full ROM. Absent: tenderness, meningismus, lymphadenopathy Respiratory exam: Present: normal lung sounds bilaterally. Absent: respiratory distress, wheezes, rales, rhonchi, stridor Cardiovascular Exam: Present: normal rhythm, tachycardia, normal heart sounds. Absent: systolic murmur, diastolic murmur, rubs, gallop, clicks GI/Abdominal exam: Present: soft, normal bowel sounds. Absent: distended, tenderness, guarding, rebound, rigid Course Vital Signs 11/28/24 11/28/24 12:01 14:32 Temperature 98 F Pulse Rate 127 H 102 H Respiratory 16 17 Rate Blood Pressure 117/68 127/96 O2 Sat by Pulse 97 99 Oximetry Medical Decision Making - Medical Decision Making Was pt. sent in by a medical professional or institution (, PA, RN EXAMINER, urgent care, hospital, or senior living...) When possible be specific @ -No Did you speak to anyone other than the patient for history (EMS, parent, family, police, friend...)? What history was obtained from this source @ -No Did you review nursing and triage notes (agree or disagree)? Why? @ -I reviewed and agree with nursing and triage notes Were old charts reviewed (outside hosp., previous admission, EMS record, old EKG, old radiological studies, urgent care reports/EKG's, senior living records)? Report findings @ -No old charts were reviewed Differential Diagnosis (chest pain, altered mental status, abdominal pain women, abdominal pain men, vaginal bleeding, weakness, fever, dyspnea, syncope, headache, dizziness, GI bleed, back pain, seizure, CVA, palpatations, mental health, musculoskeletal)? @ -[Alcohol abuse, alcohol withdrawal, alcohol intoxication EKG interpreted by me (3pts min.). @1 X-rays interpreted by me (1pt min.). @ -None done CT interpreted by me (1pt min.). @ -None done U/S interpreted by me (1pt. min.). @ -None done What testing was considered but not performed or refused? (CT, X-rays, U/S, labs)? Why? @ -None What meds were considered but not given or refused? Why? @ -None Did you discuss the management of the patient with other professionals (professionals i.e. , PA, RN EXAMINER, lab, RT, psych nurse, dialysis social worker, tin pot operator, teacher, deputy probation officer, cyanide case hardener)? Give summary @ -No Was smoking cessation discussed for >3mins.? @ -No Was critical care preformed (if so, how long)? @ -No Were there social determinants of health that impacted care today? How? (Homelessness, low income, unemployed, alcoholism, drug addiction, transportation, low edu. Level, literacy, decrease access to med. care, retirement, rehab)? @ -No Was there de-escalation of care discussed even if they declined (Discuss DNR or withdrawal of care, Hospice)? DNR status @ -No What co-morbidities impacted this encounter? (DM, HTN, Smoking, COPD, CAD, Cancer, CVA, ARF, Chemo, Hep., AIDS, mental health diagnosis, sleep apnea, morbid obesity)? @ -Alcohol abuse Was patient admitted / discharged? Hospital course, mention meds given and route, prescriptions, significant lab abnormalities, going to OR and other pertinent info. @ -Discharge patient presented for possible alcohol withdrawal. Patient has only been drinking for less than 1 week and has minimal symptoms at this time is improved after Valium we discussed inpatient versus outpatient patient agrees to plan of outpatient treatment return parens discussed. Undiagnosed new problem with uncertain prognosis? @ -No Drug Therapy requiring intensive monitoring for toxicity (Heparin, Nitro, Insulin, Cardizem)? @ -No Were any procedures done? @ -No Diagnosis/symptom? @ -[Alcohol abuse Acute, or Chronic, or Acute on Chronic? @ -Acute Uncomplicated (without systemic symptoms) or Complicated (systemic symptoms)? @ -Complicated Side effects of treatment? @ -No Exacerbation, Progression, or Severe Exacerbation? @ -No Poses a threat to life or bodily function? How? (Chest pain, [place], [place], pneumonia, PE, COPD, DKA, ARF, appy, cholecystitis, CVA, Diverticulitis, Homicidal, Suicidal, threat to staff... and all critical care pts) @ -No - Lab Data Result diagrams: 11/28/24 12:48 11/28/24 12:48 Lab Results 11/28/24 11/28/24 11/28/24 Range/Units 12:48 12:48 12:59 WBC 8.51 (4.50-10.00) 10*3/uL RBC 4.30 L (4.40-5.60) 10*6/uL Hgb 14.1 (13.0-17.0) g/dL Hct 39.8 (39.6-50.0) % MCV 92.6 (80.0-97.0) fL MCH 32.8 H (27.0-32.0) pg MCHC 35.4 (32.0-37.0) g/dL Plt Count 210 (140-440) 10*3/uL MPV 9.6 (9.5-12.2) fL Immature Gran % (Auto) 0.4 % Neutrophils % 88.7 % Lymphocytes % 6.0 % Monocytes % 4.3 % Eosinophils % 0.0 % Basophils % 0.6 % Immature Gran # 0.03 (0.00-0.04) 10*3/uL Neutrophils # 7.55 (1.80-7.70) 10*3/uL Lymphocytes # 0.51 L (0.90-5.00) 10*3/uL Monocytes # 0.37 (0.20-1.00) 10*3/uL Eosinophils # 0.00 L (0.04-0.35) 10*3/uL Basophils # 0.05 (0.00-0.10) 10*3/uL Sodium 136 L (137-145) mmol/L Potassium 4.6 (3.5-5.1) mmol/L Chloride 97 L (98-107) mmol/L Carbon Dioxide 18 L (22-30) mmol/L Anion Gap 21 mmol/L BUN 11 (9-20) mg/dL Creatinine 0.70 (0.66-1.25) mg/dL Est GFR (CKD-EPI)AfAm >90 (>60 ml/min/1.73 sqM) Est GFR (CKD-EPI)NonAf >90 (>60 ml/min/1.73 sqM) Glucose 184 H (74-99) mg/dL Calcium 9.9 (8.4-10.2) mg/dL Magnesium 1.4 L (1.6-2.3) mg/dL Total Bilirubin 1.1 (0.2-1.3) mg/dL AST 129 H (17-59) U/L ALT 147 H (4-49) U/L Alkaline Phosphatase 161 H (38-126) U/L Total Protein 7.8 (6.3-8.2) g/dL Albumin 5.1 H (3.5-5.0) g/dL Lipase 108 (23-300) U/L Urine Opiates Screen Not Detected (NotDetected) Ur Oxycodone Screen Not Detected (NotDetected) Urine Methadone Screen Not Detected (NotDetected) Ur Barbiturates Screen Not Detected (NotDetected) U Tricyclic Antidepress Not Detected (NotDetected) Ur Phencyclidine Scrn Not Detected (NotDetected) Ur Amphetamines Screen Not Detected (NotDetected) U Methamphetamines Scrn Not Detected (NotDetected) U Benzodiazepines Scrn Not Detected (NotDetected) Urine Cocaine Screen Not Detected (NotDetected) U Marijuana (THC) Screen Not Detected (NotDetected) Serum Alcohol <10 mg/dL Disposition Clinical Impression: Alcohol use disorder Disposition: HOME SELF-CARE Condition: Stable Instructions (If sedation given, give patient instructions): Alcohol Withdrawal (ED) Additional Instructions: Please return to the Emergency Department if symptoms worsen or any other concerns. Prescriptions: chlordiazePOXIDE HCl [Librium] 25 mg PO QID #20 capsule Is patient prescribed a controlled substance at d/c from ED?: No Referrals: Namita Serna MD [Primary Care Provider] - 1-2 days Time of Disposition: 14:43
[2024-11-28 14:33] VITALS: BP 127/96; PULSE 102; RESP 17
[2024-11-28] MEDS: chlordiazePOXIDE 25 MG CAP PO STA (15:21)
== END 2024-11-28 15:26 | disposition home or self-care (01) ==
LOC: EC 11:52
DX: F10.930 Alcohol use, unspecified with withdrawal, uncomplicated (principal); F17.290 Nicotine dependence, other tobacco product, uncomplicated; Z91.013 Allergy to seafood; Z91.018 Allergy to other foods
CPT/HCPCS: 36415; 80053; 83690; 83735; 85025; 80306; 99284; 96374; 96361; G0480; J3360; 80320